=== PATIENT | male | born 1955 | race Hispanic/Latino ===

== ENCOUNTER 2022-09-08 12:02 | Emergency (ER) | payer OTHER ==
[2022-09-08 13:25] LABS: #Basophils 0.1 thou/uL (0.0-0.2); #Eosinphils 0.2 thou/uL (0.0-0.7); #Monocytes 0.5 thou/uL (0.11-0.59); #Neutrophils 3.8 thou/uL (1.40-6.50); %Basophils 0.9 % (0.0-1.0); %Eosinophils 3.2 % (0.0-10.0); %Lymphocytes 20.7 % (21.0-51.0); %Neutrophils 66.5 % (42.0-75.0); Hemoglobin 15.8 g/dL (14.0-18.0); Mean Corpuscular HGB CONC 35.3 g/dL (32.0-36.0); Mean Corpuscular Hemoglobin 28.7 pg (27.0-31.0); Mean Corpuscular Volume 81.3 fl (78.0-98.0); Mean Platelet Volume 11.7 fL (7.4-10.4); Platelet Count 178 10x3/uL (130-400); RBC Distribution Width 12.2 % (11.5-14.5); White Blood Cell (WBC) Count 5.7 10x3/uL (4.8-10.8)
[2022-09-08 14:01] LABS: Albumin 4.3 g/dL (3.4-4.8)
[2022-09-08 14:02] LABS: Calcium 9.8 mg/dL (7.8-10.44); Chloride 104 mmol/L (98-107); Potassium 4.3 mmol/L (3.5-5.1); Sodium 139 mmol/L (136-145)
[2022-09-08 14:03] LABS: Globulin 2.8 g/dL (2.4-3.5); Glucose 220 mg/dL (80-115); Protein, Total 7.1 g/dL (5.8-8.1)
[2022-09-08 14:05] LABS: Bilirubin, Total 0.8 mg/dL (0.2-1.2); Carbon Dioxide 24 mmol/L (23-31)
[2022-09-08 14:06] LABS: Alkaline Phosphatase 75 U/L (40-110)
[2022-09-08 14:07] LABS: BUN (Urea Nitrogen) 12 mg/dL (8.4-25.7); Calc. Creatinine Clearance 0 mL/min (70-130); Estimated GFR 93
[2022-09-08 14:08] LABS: AST (SGOT) 21 U/L (5-34)
[2022-09-08 14:09] LABS: ALT (SGPT) 26 U/L (8-55)
[2022-09-08 14:15] LABS: Anion Gap 13 mmol/L (10-20)
[2022-09-08 16:22] LABS: SARS-CoV-2 NAA Rapid Test Not Detected (NotDetected)
== END 2022-09-08 19:18 | disposition short-term general hospital (02) ==
LOC: ERS 12:02 → EEVIPCON 12:02 → ERS 19:18
DX: R00.1 Bradycardia, unspecified (principal); E11.9 Type 2 diabetes mellitus without complications; I10 Essential (primary) hypertension; E78.5 Hyperlipidemia, unspecified; I25.10 Atherosclerotic heart disease of native coronary artery without angina pectoris; Z79.899 Other long term (current) drug therapy; Z79.84 Long term (current) use of oral hypoglycemic drugs
CPT/HCPCS: 36415; 80053; 84484; 85025; 93005; U0002